=== PATIENT | male | born 1995 | race Caucasian/White ===

== ENCOUNTER 2023-04-15 07:41 | Emergency (ER) | payer SELFPAY | END 2023-04-15 08:41 | disposition home or self-care (01) | LOC: JD.ED 07:41 | DX: M77.8 Other enthesopathies, not elsewhere classified (principal); F17.210 Nicotine dependence, cigarettes, uncomplicated; X50.1XXA Overexertion from prolonged static or awkward postures, initial encounter | CPT/HCPCS: 73080-26-LT; 73080-LT; 99283 ==